=== PATIENT | male | born 2000 ===

== ENCOUNTER 2023-06-17 14:45 | Outpatient (CLI) | payer OTHER ==
[2023-06-17 20:47] LABS: NEISSERIA GONORRHOEAE DNA NEGATIVE (NEGATIVE); TRICHOMONAS VAGINALIS DNA NEGATIVE (NEGATIVE)
[2023-06-17 20:57] LABS: CHLAMYDIA TRACHOMATIS DNA POSITIVE (NEGATIVE)
== END 2023-06-17 15:00 | disposition home or self-care (01) ==
LOC: LAB.N 14:45
PROVIDERS: ATTEND Physician Assistant Medical
DX: N50.819 Testicular pain, unspecified (principal)
CPT/HCPCS: 87491; 87591; 87661